=== PATIENT | female | born 1990 | race Caucasian/White ===

== ENCOUNTER 2019-12-02 09:48 | Emergency (ER) | payer OTHER, SELFPAY ==
[2019-12-02 09:55] VITALS: BP 137/82; PULSE 67; RESP 16; O2SAT 100; BMI 29.2
--- NOTE | 2019-12-02 10:33 | ED_ITS ---
HPI - Extremity Injury (Lower) General Chief Complaint: Extremity Injury, Lower Stated Complaint: Right foot pain Time Seen by Provider: 12/02/19 10:10 Source: patient Mode of arrival: Ambulatory Limitations: no limitations History of Present Illness HPI Narrative: Patient complains of right heel pain for the past 4 weeks. No known injury. Took ibuprofen for 1 day. Has been icing the heel. Previous injury 15 years ago of the right foot and has been doing well since then. Denies any new activity or injury. Denies any new shoe wear. Only complains of heel pain. Denies does not want a test. She does not want anything for pain at this time. She would like an x-ray Related Data Allergies Allergy/AdvReac Type Severity Reaction Status Date / Time No Known Drug Allergies Allergy Verified 12/02/19 10:03 Review of Systems Review of Systems Narrative: GENERAL: Denies chills, fatigue, malaise, fever, sweats. HEENT: Denies sinus pain, ear pain, sore throat, difficulty swallowing, dizziness. RESPIRATORY: Denies dyspnea, cough, wheezing, hemoptysis, sputum. CARDIOVASCULAR: Denies chest pain, palpitations, orthopnea, edema, GASTROINTESTINAL: Denies nausea, vomiting, abdominal pain, diarrhea, constipation, melena. : Denies dysuria, frequency, incontinence, hematuria, urinary retention. MUSCULOSKELETAL: denies weakness, joint pain, or bony pain SKIN: Denies rash, skin lesions, or other NEUROLOGIC: Denies weakness, headache, numbness, change in speech, confusion, seizures, incoordination. PSYCHIATRIC: No concerning psychosocial issues. ROS Unobtainable: All systems reviewed & are unremarkable except as noted in HPI and below Patient History Social History Smoking Status: Former smoker Smoking Status: Former smoker alcohol intake frequency: holidays/special occasions only Substance Use Type: does not use Exam Narrative Exam Narrative: GENERAL: patient appears stated age. Well-nourished, well- developed patient, in no distress, not toxic EXTREMITIES: Patient is an skirt. Shoes and socks off. Examination right lower extremity. Foot is warm soft and pink grossly symmetric to the left foot. Strong pedal pulse with light touch intact to foot and toes. Nontender ankle. No erythema no induration. No skin injury. There is reproducible point tenderness to the mid right heel. NEURO: AOx3. SKIN: No rash or erythema of visible areas PSYCH: Not anxious, is cooperative Initial Vital Signs Initial Vital Signs: Vital Signs Pulse Rate 67 12/02/19 09:55 Respiratory Rate 16 12/02/19 09:55 Blood Pressure 137/82 12/02/19 09:55 Pulse Oximetry 100 12/02/19 09:55 Course Orders Ordered: ED Orders 12/02/19 10:32 XR foot RT min 3V Stat Reevaluation(s) Reevaluation #1: Patient does not want wait for final read for x-ray. Spoke with patient likely early plantar fasciitis. She understands with this is. Her dad just diagnosed last week with the same. She plans on wearing tennis shoes with good arch support. And continuing ibuprofen. I will give patient referral to Podiatry Time: 10:49 Vital Signs Vital signs: Vital Signs - 8 hr 12/02/19 09:55 12/02/19 11:02 Pulse Rate 67 70 Respiratory Rate 16 18 Blood Pressure 137/82 109/65 Pulse Oximetry 100 97 MDM - Extremity Injury (Lower) Differential Diagnosis Differential diagnosis: Likely other (Foot strain/plantar fasciitis/heel spur) Imaging Data X-ray right foot: My Impression: No acute process Radiologist's Impression: [address] [address] XRay Report Signed Patient: Camila Casas [facility]#: [id number] : 1990Acct:[id number] Age/Sex: 29 / FDate of Service: 12/02/19 Loc: ED Accession Number: [id number] Procedure: XR foot RT min 3V Ordering Provider: Aftab Terrell MD PROCEDURE: XR FOOT RT MIN 3V INDICATIONS: pain/heel pain TECHNIQUE: 3 views of the foot were acquired. COMPARISON: None. FINDINGS: Bones: No fractures or dislocations. No suspicious bony lesions. Soft tissues: No tibiotalar joint effusion. Achilles tendon appears normal. IMPRESSION: No acute fracture. No osseous lesion. If symptoms and/or clinical suspicion for pathology persist, further assessment with repeat, or advanced imaging (e.g., CT, MRI, or bone scan) may be helpful for further assessment. Dictated by: Marietta Livingston M.D. on 12/02/2019 at 10:44 Approved by: Marietta Livingston M.D. on 12/02/2019 at 10:44 Discharge Plan Departure Patient Disposition: Home Clinical Impression: Plantar fasciitis of right foot Discharge Date/Time: 12/02/19 11:17 Instructions: DI for Plantar Fasciitis Activity Restrictions/Additional Instructions: Call scheduled with Orthopedics in as for Dr. Gallegos or Dr. Delaney with Podiatry, call today, for office recheck within 2 weeks. May continue home ibuprofen for pain. Be sure to wear tennis shoes with good arch support for comfort. Return if worse or if any questions or concerns
[2019-12-02 11:02] VITALS: BP 109/65; PULSE 70; RESP 18; O2SAT 97
== END 2019-12-02 11:17 | disposition home or self-care (01) ==
PROVIDERS: Emergency Provider Emergency Medicine
DX: M72.2 Plantar fascial fibromatosis (principal)
CPT/HCPCS: 73630; 99283

== ENCOUNTER 2021-02-07 10:08 | Emergency (ER) | payer OTHER, SELFPAY ==
[2021-02-07 10:33] VITALS: BP 127/76; PULSE 73; RESP 16; TEMP 36.8; O2SAT 98
[2021-02-07 11:06] LABS: COVID19 -Nasal RAPID Negative (Negative)
--- NOTE | 2021-02-07 11:44 | ED_ITS ---
HPI - URI/Sore Throat General Chief Complaint: Upper Respiratory Symptoms Stated Complaint: head cold symptoms Time Seen by Provider: 02/07/21 11:44 Source: patient Mode of arrival: Family Vehicle Limitations: no limitations History of Present Illness HPI Narrative: Patient is a healthy 30-year-old female currently not vaccinated for COVID presenting with 2 days of headache cough and facial congestion. Both of her boys have similar symptoms. She denies any neck pain or fever. She has no nausea or vomiting. Cough is not productive she does not feel short of breath. Her concern is COVID and would like a test. Related Data Allergies Allergy/AdvReac Type Severity Reaction Status Date / Time No Known Drug Allergies Allergy Verified 02/07/21 10:49 Review of Systems Review of Systems Narrative: GENERAL: Denies chills, fatigue, malaise, fever, sweats, travel HEENT: Denies sinus pain, ear pain, sore throat, difficulty swallowing, neck pain RESPIRATORY: see HPI CARDIOVASCULAR: Denies chest pain, palpitations, orthopnea, edema GASTROINTESTINAL: Denies nausea, vomiting, abdominal pain, diarrhea, constipation, melena. : Denies dysuria, frequency, incontinence, hematuria, urinary retention, flank pain. MUSCULOSKELETAL: Denies weakness, joint pain, or bony pain SKIN: No rash, no erythema, no pruritus NEUROLOGIC: + headache Denies weakness, dizziness, numbness, change in speech, confusion PSYCHIATRIC: No concerning psychosocial issues. 12 point review of systems is negative except for those stated above and HPI Patient History Social History Smoking Status: Former smoker Smoking Status: Former smoker tobacco type: cigarettes alcohol intake frequency: holidays/special occasions only Substance Use Type: does not use Exam Initial Vital Signs Initial Vital Signs: Vital Signs Temperature 98.2 F 02/07/21 10:33 Pulse Rate 73 02/07/21 10:33 Respiratory Rate 16 02/07/21 10:33 Blood Pressure 127/76 02/07/21 10:33 Pulse Oximetry 98 02/07/21 10:33 GENERAL: Alert well-appearing 30-year-old female in no acute distress. HEENT: Head atraumatic,EOMI, pupils reactive, face symmetric, moist mucous membranes NECK: Supple no meningeal signs CARDIOVASCULAR: Regular rate and rhythm without murmurs, rubs or gallops. RESPIRATORY: Breath sounds equal bilaterally, no wheezes rales or rhonchi. ABDOMEN: Soft, nontender. Normoactive bowel sounds all 4 quadrants. No guarding or rebound. EXTREMITIES: Normal range of motion, no clubbing or edema. Neurovascularly intact NEUROLOGICAL: Alert and oriented x4.Normal gait and speech. No deficits SKIN: Warm, dry, no laceration, no petechiae, no rashes or lesions. Course Orders Ordered: ED Orders 02/07/21 10:26 COVID19 -Nasal swab/Pre-Proc Stat Vital Signs Vital signs: Vital Signs - 8 hr 02/07/21 10:33 Temperature 98.2 F Pulse Rate 73 Respiratory Rate 16 Blood Pressure 127/76 Pulse Oximetry 98 MDM - URI/Sore Throat Lab Data Labs: Lab Results 02/07/21 Range/Units 10:26 SARS-CoV-2 (PCR) Negative (Negative) [facility] Narrative Medical decision making narrative: Patient has over respiratory like symptoms. She is currently afebrile her COVID test is negative. She does not have any meningeal signs at this time. Recommend supportive care. Discharge Plan Departure Patient Disposition: Home Clinical Impression: Upper respiratory infection Instructions: DI for Viral Upper Respiratory Infection -- Adult Activity Restrictions/Additional Instructions: *You have been diagnosed with upper respiratory infection *What to do: At this time COVID test is negative. If symptoms heart continuing in the next 3-5 days may need repeat COVID testing *Continue to take medications as directed *Follow up with your primary care provider in 2-3 days *Return to ER if you should have increasing shortness of breath, headache, persistent fever or any new, worsening or concerning symptoms
== END 2021-02-07 12:46 | disposition home or self-care (01) ==
PROVIDERS: Emergency Provider Emergency Medicine
DX: J06.9 Acute upper respiratory infection, unspecified (principal); Z20.822 Contact with and (suspected) exposure to COVID-19; Z87.891 Personal history of nicotine dependence
CPT/HCPCS: 87635; 99281; 99282; C9803